=== PATIENT | female | born 1950 | race African-American/Black ===

== ENCOUNTER 2020-11-25 05:56 | Inpatient (IN) | payer OTHER ==
[2020-11-25] MEDS ORDERED: SODIUM CHLORIDE 0.9% 500 ML INFUS.BAG IV ONE (06:00)
[2020-11-25] MEDS ORDERED: ACETAMINOPHEN 1000 MG/100 ML VIAL (NON FORMULARY) IVPB ONE (06:00)
[2020-11-25] MEDS ORDERED: DEXAMETHASONE SOD PHOSPHATE 4 MG/1 ML VIAL IVPUSH ONE (06:02)
[2020-11-25] MEDS ORDERED: DEXAMETHASONE SOD PHOSPHATE 10 MG/1 ML VIAL ONE ×2 (06:13→10:19)
[2020-11-25] MEDS ORDERED: ACETAMINOPHEN INJECTION 100 ML IVPB ONE (06:14)
[2020-11-25 06:29] LABS: VENOUS BASE EXCESS 4.2 mmol/L (-2-2); VENOUS O2 SATURATION 69.5 % (70-80); VENOUS PCO2 41.4 mmHg (38-52); VENOUS PH 7.456 (7.310-7.410)
[2020-11-25 06:38] LABS: BASO % 2.7 % (0-2.0); EOS % 0.1 % (0-4.5); HEMATOCRIT 41.6 % (32.4-45.2); HEMOGLOBIN 14.2 GM/dL (10.7-15.3); LYMPH % 8.2 % (8-40); MCH 26.5 pg (25.7-33.7); MCHC 34.1 g/dl (32.0-36.0); MEAN CELL VOLUME 77.6 fl (80-96); MEAN PLT VOLUME 8.8 fl (7.5-11.1); MONO % 8.6 % (3.8-10.2); NEUT % 80.4 % (42.8-82.8); PLATELET COUNT 204 K/MM3 (134-434); RBC 5.36 M/mm3 (3.60-5.2); WHITE BLOOD COUNT 5.4 K/mm3 (4.0-10.0)
[2020-11-25 06:50] LABS: INR 1.03 (0.83-1.09); PROTHROMBIN TIME (PATIENT) 12.7 SEC (9.7-13.0)
[2020-11-25 06:53] LABS: ACTIVATED PTT 34.2 SECONDS (25.2-36.5); CALCIUM 8.5 mg/dL (8.5-10.1)
[2020-11-25 06:54] LABS: ALBUMIN 3.2 g/dl (3.4-5.0); BLOOD UREA NITROGEN 15.7 mg/dL (7-18)
[2020-11-25 06:56] LABS: BILIRUBIN,DIRECT 0.2 mg/dL (0.0-0.2)
[2020-11-25 06:57] LABS: CREATININE 0.8 mg/dL (0.55-1.3)
[2020-11-25 06:58] LABS: BILIRUBIN,TOTAL 0.6 mg/dL (0.2-1); TOT PROT 6.9 g/dl (6.4-8.2)
[2020-11-25 07:02] LABS: N-TERMINAL BNP 375.9 pg/ml (5-125)
[2020-11-25] MEDS ORDERED: ALBUTEROL SO4 HFA INHALER IH PRN (08:43)
[2020-11-25] MEDS: BUDESONIDE/FORMETEROL FUMARATE 160/4.5 mcg INHALER IH SCH (10:00)
[2020-11-25] MEDS ORDERED: DEXAMETHASONE 4 MG TABLET (FP) PO SCH (10:00)
[2020-11-25] MEDS ORDERED: ENOXAPARIN NA (PORCINE) 40 MG/0.4 ML DISP.SYRIN SQ SCH ×2 (10:00)
[2020-11-25] MEDS ORDERED: DEXAMETHASONE SOD PHOSPHATE 4 MG/1 ML VIAL IVPUSH SCH (10:00)
[2020-11-25] MEDS ORDERED: ENOXAPARIN NA (PORCINE) 40 MG/0.4 ML DISP.SYRIN SQ ONE (10:20)
[2020-11-25] MEDS: INSULIN SLIDING SCALE (NOVOLOG) 1 VIAL SQ SCH ×2 (11:21→17:44)
[2020-11-25] MEDS ORDERED: ENOXAPARIN NA (PORCINE) 80 MG/0.8 ML DISP.SYRIN SQ SCH ×2 (11:55→22:00)
[2020-11-25 15:01] LABS: EPI CELLS 8 /uL (0-25.1); HYALINE CASTS 0 /uL (0-3.1); URINE APPEARANCE CLEAR; URINE BACTERIA 376 /uL (0-1359); URINE BILIRUBIN NEGATIVE (NEGATIVE); URINE COLOR YELLOW; URINE GLUCOSE (UA) NEGATIVE (NEGATIVE); URINE KETONE NEGATIVE (NEGATIVE); URINE LEUK ESTERASE TRACE (NEGATIVE); URINE NITRITE NEGATIVE (NEGATIVE); URINE PROTEIN 1+ (NEGATIVE); URINE RBC 6 /uL (0-23.9); URINE UROBILINOGEN 0.2 mg/dL (0.2-1.0); URINE WBC 21 /uL (0-25.8)
[2020-11-25] MEDS ORDERED: LABETALOL HCL 100 MG TABLET (FP) PO SCH (22:00)
[2020-11-25] MEDS ORDERED: ATORVASTATIN CA 20 MG TABLET (FP) PO SCH (22:00)
[2020-11-25] MEDS ORDERED: FAMOTIDINE 20 MG/50 ML IVPB 20 MG/50 ML MG IVPB SCH (22:00)
[2020-11-25] MEDS ORDERED: ENOXAPARIN NA (PORCINE) 80 MG/0.8 ML DISP.SYRIN SQ ONE (23:32)
[2020-11-25] MEDS ORDERED: FAMOTIDINE 20 MG/50 ML IVPB 20 MG/50 ML MG IVPB ONE (23:32)
[2020-11-25] MEDS ORDERED: ATORVASTATIN CA 10 MG TABLET (FP) ONE (23:32)
[2020-11-25] MEDS ORDERED: LABETALOL HCL 100 MG TABLET (FP) ONE (23:32)
[2020-11-26] MEDS: INSULIN SLIDING SCALE (NOVOLOG) 1 VIAL SQ SCH ×5 (00:02→21:37)
[2020-11-26] MEDS: BUDESONIDE/FORMETEROL FUMARATE 160/4.5 mcg INHALER IH SCH ×3 (00:03→22:30)
[2020-11-26] MEDS ORDERED: ALBUTEROL SO4 HFA INHALER IH PRN (04:43)
[2020-11-26 05:58] LABS: ARTERIAL BLOOD GAS BASE EXCESS 1.9 mmol/L (-2-2); ARTERIAL BLOOD GAS PO2 45.5 mmHg (80-100); ARTERIAL BLOOD GAS pH 7.454 (7.350-7.450)
[2020-11-26 06:09] LABS: ALLENS TEST POSITIVE; ARTERIAL BLD GAS O2 SATURATION 83.7 mmHg (95-98)
[2020-11-26 06:10] LABS: VENT MODE S/T; VENT RATE 16
[2020-11-26 07:06] LABS: BASO % 0.8 % (0-2.0); HEMATOCRIT 41.5 % (32.4-45.2); HEMOGLOBIN 13.7 GM/dL (10.7-15.3); LYMPH % 10.5 % (8-40); MCH 26.1 pg (25.7-33.7); MCHC 33.1 g/dl (32.0-36.0); MEAN CELL VOLUME 78.9 fl (80-96); MEAN PLT VOLUME 8.8 fl (7.5-11.1); MONO % 18.1 % (3.8-10.2); NEUT % 70.6 % (42.8-82.8); PLATELET COUNT 275 K/MM3 (134-434); RBC 5.25 M/mm3 (3.60-5.2); RDW 14.1 % (11.6-15.6); WHITE BLOOD COUNT 4.8 K/mm3 (4.0-10.0)
[2020-11-26 07:17] LABS: ALBUMIN 2.9 g/dl (3.4-5.0); BLOOD UREA NITROGEN 18.8 mg/dL (7-18); CALCIUM 8.7 mg/dL (8.5-10.1); MAGNESIUM 2.7 mg/dL (1.8-2.4)
[2020-11-26 07:20] LABS: CREATININE 0.8 mg/dL (0.55-1.3)
[2020-11-26 07:21] LABS: PHOSPHOROUS 2.6 mg/dL (2.5-4.9)
[2020-11-26 07:22] LABS: BILIRUBIN,TOTAL 0.5 mg/dL (0.2-1); TOT PROT 6.6 g/dl (6.4-8.2)
[2020-11-26] MEDS ORDERED: CHLORTHALIDONE 25 MG TABLET PO SCH (10:00)
[2020-11-26] MEDS ORDERED: amLODIPine BESYLATE 10 MG TABLET (FP) PO SCH (10:00)
[2020-11-26] MEDS ORDERED: LOSARTAN POTASSIUM 50 MG TABLET PO SCH (10:00)
[2020-11-26] MEDS ORDERED: PT OWN MED DRAWER 7, Y5N ONE ×2 (10:05→10:28)
[2020-11-26] MEDS: FAMOTIDINE 20 MG/50 ML IVPB 20 MG/50 ML MG IVPB SCH ×2 (10:10→21:25)
[2020-11-26] MEDS: ENOXAPARIN NA (PORCINE) 80 MG/0.8 ML DISP.SYRIN SQ SCH ×2 (10:11→21:23)
[2020-11-26] MEDS: DEXAMETHASONE 4 MG TABLET (FP) PO SCH (10:11)
[2020-11-26] MEDS: LABETALOL HCL 100 MG TABLET (FP) PO SCH ×2 (10:12→21:25)
[2020-11-26] MEDS: LOSARTAN POTASSIUM 50 MG TABLET PO SCH (10:12)
[2020-11-26] MEDS: amLODIPine BESYLATE 10 MG TABLET (FP) PO SCH (10:12)
[2020-11-26] MEDS ORDERED: REMDESIVIR 200 MG in SODIUM CHLORIDE 210 ML IVPB ONE (11:00)
[2020-11-26] MEDS: CHLORTHALIDONE 25 MG TABLET PO SCH (11:30)
[2020-11-26] MEDS: MUPIROCIN 2% TOPICAL OINTMENT FOR DECOLONIZATION NS SCH ×2 (11:31→21:25)
[2020-11-26] MEDS: CEFTRIAXONE 1 GM in DEXTROSE 5%-WATER - 50 ML IVPB SCH (12:00)
[2020-11-26] MEDS ORDERED: cefTRIAXone SODIUM 1 GM VIAL ONE (12:05)
[2020-11-26] MEDS ORDERED: DEXTROSE 5%-WATER - 50 ML IVPB ONE (12:05)
[2020-11-26] MEDS: ALBUTEROL SO4 HFA INHALER IH SCH ×3 (12:49→20:30)
[2020-11-26] MEDS: AZITHROMYCIN IVPB 250 MG in DEXTROSE 5%-WATER - 250 ML IVPB SCH (13:00)
[2020-11-26] MEDS ORDERED: INSULIN (LEVEMIR) 100 UNITS/ML UNITS SQ ONE (18:14)
[2020-11-26] MEDS: ATORVASTATIN CA 20 MG TABLET (FP) PO SCH (21:25)
[2020-11-26] MEDS: CHLORHEXIDINE GLUCONATE 4% CLEANSER FOR DECOLONIZATION TP SCH (21:25)
[2020-11-27 05:37] LABS: ARTERIAL BLOOD GAS BASE EXCESS 2.8 mmol/L (-2-2); ARTERIAL BLOOD GAS PO2 93.8 mmHg (80-100); ARTERIAL BLOOD GAS pH 7.414 (7.350-7.450)
[2020-11-27 05:38] LABS: ALLENS TEST POSITIVE
[2020-11-27 05:39] LABS: VENT MODE S/T; VENT RATE 16
[2020-11-27] MEDS: INSULIN SLIDING SCALE (NOVOLOG) 1 VIAL SQ SCH ×4 (06:12→21:31)
[2020-11-27 06:52] LABS: BASO % 0.2 % (0-2.0); HEMATOCRIT 42.8 % (32.4-45.2); LYMPH % 7.8 % (8-40); MCHC 32.6 g/dl (32.0-36.0); MEAN CELL VOLUME 79.6 fl (80-96); MEAN PLT VOLUME 8.7 fl (7.5-11.1); MONO % 10.8 % (3.8-10.2); NEUT % 81.2 % (42.8-82.8); PLATELET COUNT 341 K/MM3 (134-434); RBC 5.37 M/mm3 (3.60-5.2)
[2020-11-27 07:15] LABS: ALBUMIN 2.8 g/dl (3.4-5.0); CALCIUM 9.2 mg/dL (8.5-10.1)
[2020-11-27 07:17] LABS: BLOOD UREA NITROGEN 19.5 mg/dL (7-18)
[2020-11-27 07:19] LABS: CREATININE 0.7 mg/dL (0.55-1.3); PHOSPHOROUS 3.6 mg/dL (2.5-4.9)
[2020-11-27 07:20] LABS: BILIRUBIN,TOTAL 0.4 mg/dL (0.2-1); TOT PROT 6.4 g/dl (6.4-8.2)
[2020-11-27] MEDS ORDERED: cefTRIAXone SODIUM 1 GM VIAL ONE (09:29)
[2020-11-27] MEDS ORDERED: PT OWN MED DRAWER 7, Y5N ONE ×2 (09:29→11:30)
[2020-11-27] MEDS ORDERED: DEXTROSE 5%-WATER - 50 ML IVPB ONE (09:29)
[2020-11-27] MEDS: MUPIROCIN 2% TOPICAL OINTMENT FOR DECOLONIZATION NS SCH ×2 (09:38→21:25)
[2020-11-27] MEDS: POLYETHYLENE GLYCOL 3350 119 GM BTL PO SCH (09:38)
[2020-11-27] MEDS: LOSARTAN POTASSIUM 50 MG TABLET PO SCH (09:38)
[2020-11-27] MEDS: DEXAMETHASONE 4 MG TABLET (FP) PO SCH (09:39)
[2020-11-27] MEDS: CHLORTHALIDONE 25 MG TABLET PO SCH (09:41)
[2020-11-27] MEDS: ENOXAPARIN NA (PORCINE) 80 MG/0.8 ML DISP.SYRIN SQ SCH ×2 (09:42→21:23)
[2020-11-27] MEDS: LABETALOL HCL 100 MG TABLET (FP) PO SCH ×2 (09:42→21:24)
[2020-11-27] MEDS: FAMOTIDINE 20 MG/50 ML IVPB 20 MG/50 ML MG IVPB SCH ×2 (09:43→21:31)
[2020-11-27] MEDS: amLODIPine BESYLATE 10 MG TABLET (FP) PO SCH (09:43)
[2020-11-27] MEDS: CEFTRIAXONE 1 GM in DEXTROSE 5%-WATER - 50 ML IVPB SCH (09:44)
[2020-11-27] MEDS ORDERED: TOCILIZUMAB (ACTEMRA) 200 MG/10 ML VIAL IVPB ONE (09:45)
[2020-11-27] MEDS: AZITHROMYCIN IVPB 250 MG in DEXTROSE 5%-WATER - 250 ML IVPB SCH (09:45)
[2020-11-27] MEDS: ALBUTEROL SO4 HFA INHALER IH SCH ×4 (09:46→21:25)
[2020-11-27] MEDS: BUDESONIDE/FORMETEROL FUMARATE 160/4.5 mcg INHALER IH SCH ×2 (09:46→21:25)
[2020-11-27] MEDS ORDERED: POLYETHYLENE GLYCOL 3350 119 GM BTL PO SCH (10:00)
[2020-11-27] MEDS ORDERED: SODIUM CHLORIDE IVPB ONE (11:00)
[2020-11-27] MEDS ORDERED: TOCILIZUMAB IVPB ONE (11:00)
[2020-11-27] MEDS: SODIUM CHLORIDE 0.45% 1,000 ML IV SCH (11:23)
[2020-11-27] MEDS: REMDESIVIR 100 MG in SODIUM CHLORIDE 230 ML IVPB SCH (11:31)
[2020-11-27] MEDS ORDERED: ALPRAZolam 0.25 MG TABLET PO ONE (12:34)
[2020-11-27] MEDS: ATORVASTATIN CA 20 MG TABLET (FP) PO SCH (21:23)
[2020-11-27] MEDS: CHLORHEXIDINE GLUCONATE 4% CLEANSER FOR DECOLONIZATION TP SCH (21:23)
[2020-11-28] MEDS: SODIUM CHLORIDE 0.45% 1,000 ML IV SCH ×3 (04:00→22:40)
[2020-11-28] MEDS: INSULIN SLIDING SCALE (NOVOLOG) 1 VIAL SQ SCH ×4 (06:18→21:10)
[2020-11-28 07:18] LABS: BASO % 0.3 % (0-2.0); HEMATOCRIT 43.1 % (32.4-45.2); HEMOGLOBIN 14.6 GM/dL (10.7-15.3); MCH 26.7 pg (25.7-33.7); MCHC 33.8 g/dl (32.0-36.0); MEAN CELL VOLUME 78.9 fl (80-96); MEAN PLT VOLUME 8.5 fl (7.5-11.1); MONO % 7.4 % (3.8-10.2); NEUT % 85.3 % (42.8-82.8); PLATELET COUNT 362 K/MM3 (134-434); RBC 5.46 M/mm3 (3.60-5.2); RDW 14.2 % (11.6-15.6); WHITE BLOOD COUNT 8.4 K/mm3 (4.0-10.0)
[2020-11-28 07:56] LABS: ALBUMIN 2.8 g/dl (3.4-5.0); BLOOD UREA NITROGEN 16.4 mg/dL (7-18); CREATININE 0.7 mg/dL (0.55-1.3); PHOSPHOROUS 3.8 mg/dL (2.5-4.9)
[2020-11-28 07:58] LABS: BILIRUBIN,TOTAL 0.5 mg/dL (0.2-1); MAGNESIUM 2.3 mg/dL (1.8-2.4); TOT PROT 6.3 g/dl (6.4-8.2)
[2020-11-28] MEDS: ALBUTEROL SO4 HFA INHALER IH SCH ×4 (08:30→20:52)
[2020-11-28] MEDS ORDERED: PT OWN MED DRAWER 7, Y5N ONE (09:06)
[2020-11-28] MEDS ORDERED: DEXTROSE 5%-WATER - 50 ML IVPB ONE (09:07)
[2020-11-28] MEDS ORDERED: cefTRIAXone SODIUM 1 GM VIAL ONE (09:07)
[2020-11-28] MEDS: MUPIROCIN 2% TOPICAL OINTMENT FOR DECOLONIZATION NS SCH ×2 (09:12→21:02)
[2020-11-28] MEDS: AZITHROMYCIN IVPB 250 MG in DEXTROSE 5%-WATER - 250 ML IVPB SCH (09:13)
[2020-11-28] MEDS: CEFTRIAXONE 1 GM in DEXTROSE 5%-WATER - 50 ML IVPB SCH (09:14)
[2020-11-28] MEDS: amLODIPine BESYLATE 10 MG TABLET (FP) PO SCH (09:16)
[2020-11-28] MEDS: FAMOTIDINE 20 MG/50 ML IVPB 20 MG/50 ML MG IVPB SCH ×2 (09:16→21:01)
[2020-11-28] MEDS: LABETALOL HCL 100 MG TABLET (FP) PO SCH ×2 (09:16→21:01)
[2020-11-28] MEDS: ENOXAPARIN NA (PORCINE) 80 MG/0.8 ML DISP.SYRIN SQ SCH ×2 (09:17→21:02)
[2020-11-28] MEDS: LOSARTAN POTASSIUM 50 MG TABLET PO SCH (09:17)
[2020-11-28] MEDS: CHLORTHALIDONE 25 MG TABLET PO SCH (09:17)
[2020-11-28] MEDS: DEXAMETHASONE 4 MG TABLET (FP) PO SCH (09:17)
[2020-11-28] MEDS: BUDESONIDE/FORMETEROL FUMARATE 160/4.5 mcg INHALER IH SCH ×2 (09:17→21:03)
[2020-11-28] MEDS: POLYETHYLENE GLYCOL 3350 119 GM BTL PO SCH (10:27)
[2020-11-28] MEDS ORDERED: DEXAMETHASONE SOD PHOSPHATE 4 MG/1 ML VIAL IVPUSH ONE (11:32)
[2020-11-28] MEDS: REMDESIVIR 100 MG in SODIUM CHLORIDE 230 ML IVPB SCH (12:00)
[2020-11-28] MEDS: DEXAMETHASONE SOD PHOSPHATE 4 MG/1 ML VIAL IVPUSH SCH (12:15)
[2020-11-28] MEDS: CHLORHEXIDINE GLUCONATE 4% CLEANSER FOR DECOLONIZATION TP SCH (21:02)
[2020-11-28] MEDS: ATORVASTATIN CA 20 MG TABLET (FP) PO SCH (21:02)
[2020-11-29] MEDS: INSULIN SLIDING SCALE (NOVOLOG) 1 VIAL SQ SCH ×4 (06:34→22:08)
[2020-11-29 07:05] LABS: BASO % 0.4 % (0-2.0); EOS % 0.1 % (0-4.5); HEMATOCRIT 44.1 % (32.4-45.2); LYMPH % 6.5 % (8-40); MCH 26.6 pg (25.7-33.7); MEAN CELL VOLUME 78.2 fl (80-96); MEAN PLT VOLUME 8.2 fl (7.5-11.1); MONO % 7.8 % (3.8-10.2); NEUT % 85.2 % (42.8-82.8); PLATELET COUNT 428 K/MM3 (134-434); RBC 5.64 M/mm3 (3.60-5.2); RDW 14.3 % (11.6-15.6); WHITE BLOOD COUNT 10.5 K/mm3 (4.0-10.0)
[2020-11-29 07:31] LABS: ALBUMIN 2.8 g/dl (3.4-5.0); BLOOD UREA NITROGEN 17.3 mg/dL (7-18); CALCIUM 9.1 mg/dL (8.5-10.1)
[2020-11-29 07:32] LABS: MAGNESIUM 2.2 mg/dL (1.8-2.4)
[2020-11-29 07:34] LABS: BILIRUBIN,TOTAL 0.9 mg/dL (0.2-1); CREATININE 0.7 mg/dL (0.55-1.3); PHOSPHOROUS 3.6 mg/dL (2.5-4.9)
[2020-11-29 07:35] LABS: TOT PROT 6.3 g/dl (6.4-8.2)
[2020-11-29] MEDS: ALBUTEROL SO4 HFA INHALER IH SCH ×4 (08:00→20:15)
[2020-11-29 09:51] LABS: ANISOCYTOSIS 0; MACROCYTOSIS 0; PLATELET ESTIMATE NORMAL
[2020-11-29] MEDS ORDERED: DEXTROSE 5%-WATER - 50 ML IVPB ONE (11:12)
[2020-11-29] MEDS ORDERED: cefTRIAXone SODIUM 1 GM VIAL ONE (11:12)
[2020-11-29] MEDS: CEFTRIAXONE 1 GM in DEXTROSE 5%-WATER - 50 ML IVPB SCH (11:39)
[2020-11-29] MEDS: FAMOTIDINE 20 MG/50 ML IVPB 20 MG/50 ML MG IVPB SCH ×2 (11:39→22:08)
[2020-11-29] MEDS: ENOXAPARIN NA (PORCINE) 80 MG/0.8 ML DISP.SYRIN SQ SCH ×2 (11:40→22:08)
[2020-11-29] MEDS: DEXAMETHASONE SOD PHOSPHATE 4 MG/1 ML VIAL IVPUSH SCH (11:41)
[2020-11-29] MEDS: LABETALOL HCL 100 MG TABLET (FP) PO SCH ×2 (11:41→22:08)
[2020-11-29] MEDS: POLYETHYLENE GLYCOL 3350 119 GM BTL PO SCH (11:41)
[2020-11-29] MEDS: MUPIROCIN 2% TOPICAL OINTMENT FOR DECOLONIZATION NS SCH ×2 (11:42→22:08)
[2020-11-29] MEDS: CHLORTHALIDONE 25 MG TABLET PO SCH (11:43)
[2020-11-29] MEDS: LOSARTAN POTASSIUM 50 MG TABLET PO SCH (11:43)
[2020-11-29] MEDS: BUDESONIDE/FORMETEROL FUMARATE 160/4.5 mcg INHALER IH SCH ×2 (11:44→22:09)
[2020-11-29] MEDS: amLODIPine BESYLATE 10 MG TABLET (FP) PO SCH (11:44)
[2020-11-29] MEDS: SODIUM CHLORIDE 0.45% 1,000 ML IV SCH (11:45)
[2020-11-29] MEDS ORDERED: PT OWN MED DRAWER 7, Y5N ONE (11:50)
[2020-11-29] MEDS: AZITHROMYCIN IVPB 250 MG in DEXTROSE 5%-WATER - 250 ML IVPB SCH (11:54)
[2020-11-29] MEDS: REMDESIVIR 100 MG in SODIUM CHLORIDE 230 ML IVPB SCH (11:55)
[2020-11-29] MEDS: CHLORHEXIDINE GLUCONATE 4% CLEANSER FOR DECOLONIZATION TP SCH (22:08)
[2020-11-29] MEDS: ATORVASTATIN CA 20 MG TABLET (FP) PO SCH (22:08)
[2020-11-30 06:30] LABS: HEMATOCRIT 44.9 % (32.4-45.2); HEMOGLOBIN 14.9 GM/dL (10.7-15.3); MCH 26.5 pg (25.7-33.7); MCHC 33.3 g/dl (32.0-36.0); MEAN CELL VOLUME 79.7 fl (80-96); MEAN PLT VOLUME 8.4 fl (7.5-11.1); PLATELET COUNT 450 K/MM3 (134-434); RBC 5.63 M/mm3 (3.60-5.2); RDW 13.9 % (11.6-15.6); WHITE BLOOD COUNT 10.2 K/mm3 (4.0-10.0)
[2020-11-30 06:35] LABS: CALCIUM 9.5 mg/dL (8.5-10.1)
[2020-11-30 06:36] LABS: BLOOD UREA NITROGEN 20.5 mg/dL (7-18); MAGNESIUM 2.2 mg/dL (1.8-2.4)
[2020-11-30] MEDS: INSULIN SLIDING SCALE (NOVOLOG) 1 VIAL SQ SCH ×4 (06:37→22:35)
[2020-11-30 06:39] LABS: CREATININE 0.8 mg/dL (0.55-1.3)
[2020-11-30 06:40] LABS: PHOSPHOROUS 3.7 mg/dL (2.5-4.9)
[2020-11-30] MEDS: ALBUTEROL SO4 HFA INHALER IH SCH ×4 (09:00→21:39)
[2020-11-30] MEDS ORDERED: PT OWN MED DRAWER 7, Y5N ONE ×2 (09:09→10:49)
[2020-11-30] MEDS: DEXAMETHASONE SOD PHOSPHATE 4 MG/1 ML VIAL IVPUSH SCH (10:19)
[2020-11-30] MEDS: MUPIROCIN 2% TOPICAL OINTMENT FOR DECOLONIZATION NS SCH ×2 (10:19→21:37)
[2020-11-30] MEDS: ENOXAPARIN NA (PORCINE) 80 MG/0.8 ML DISP.SYRIN SQ SCH ×2 (10:19→21:25)
[2020-11-30] MEDS: amLODIPine BESYLATE 10 MG TABLET (FP) PO SCH (10:23)
[2020-11-30] MEDS: LOSARTAN POTASSIUM 50 MG TABLET PO SCH (10:23)
[2020-11-30] MEDS: CHLORTHALIDONE 25 MG TABLET PO SCH ×2 (10:23→12:02)
[2020-11-30] MEDS: FAMOTIDINE 20 MG/50 ML IVPB 20 MG/50 ML MG IVPB SCH ×2 (10:23→21:24)
[2020-11-30] MEDS: LABETALOL HCL 100 MG TABLET (FP) PO SCH ×2 (10:23→21:24)
[2020-11-30] MEDS: BUDESONIDE/FORMETEROL FUMARATE 160/4.5 mcg INHALER IH SCH ×2 (10:24→21:39)
[2020-11-30] MEDS: POLYETHYLENE GLYCOL 3350 119 GM BTL PO SCH (10:24)
[2020-11-30] MEDS: SODIUM CHLORIDE 0.45% 1,000 ML IV SCH ×2 (10:45→21:00)
[2020-11-30] MEDS: REMDESIVIR 100 MG in SODIUM CHLORIDE 230 ML IVPB SCH (10:50)
[2020-11-30] MEDS ORDERED: INSULIN REGULAR HUMAN 100 UNITS/ML *VIAL IVPUSH ONE (21:24)
[2020-11-30] MEDS: ATORVASTATIN CA 20 MG TABLET (FP) PO SCH (21:24)
[2020-11-30] MEDS: CHLORHEXIDINE GLUCONATE 4% CLEANSER FOR DECOLONIZATION TP SCH (21:25)
[2020-12-01] MEDS: INSULIN SLIDING SCALE (NOVOLOG) 1 VIAL SQ SCH ×3 (06:16→22:08)
[2020-12-01 06:41] LABS: BASO % 0.3 % (0-2.0); EOS % 0.8 % (0-4.5); HEMATOCRIT 46.4 % (32.4-45.2); HEMOGLOBIN 15.6 GM/dL (10.7-15.3); LYMPH % 5.9 % (8-40); MCH 26.6 pg (25.7-33.7); MCHC 33.7 g/dl (32.0-36.0); MEAN PLT VOLUME 8.1 fl (7.5-11.1); MONO % 4.8 % (3.8-10.2); NEUT % 88.2 % (42.8-82.8); PLATELET COUNT 434 K/MM3 (134-434); RBC 5.87 M/mm3 (3.60-5.2); RDW 14.2 % (11.6-15.6); WHITE BLOOD COUNT 9.8 K/mm3 (4.0-10.0)
[2020-12-01 06:47] LABS: CALCIUM 9.5 mg/dL (8.5-10.1)
[2020-12-01 06:48] LABS: BLOOD UREA NITROGEN 20.5 mg/dL (7-18)
[2020-12-01 06:50] LABS: CREATININE 0.9 mg/dL (0.55-1.3)
[2020-12-01 06:51] LABS: PHOSPHOROUS 3.8 mg/dL (2.5-4.9)
[2020-12-01 06:52] LABS: BILIRUBIN,TOTAL 0.6 mg/dL (0.2-1); TOT PROT 6.4 g/dl (6.4-8.2)
[2020-12-01] MEDS: DEXAMETHASONE SOD PHOSPHATE 4 MG/1 ML VIAL IVPUSH SCH (09:50)
[2020-12-01] MEDS: LABETALOL HCL 100 MG TABLET (FP) PO SCH ×2 (09:50→21:21)
[2020-12-01] MEDS: FAMOTIDINE 20 MG/50 ML IVPB 20 MG/50 ML MG IVPB SCH ×2 (09:50→21:22)
[2020-12-01] MEDS: LOSARTAN POTASSIUM 50 MG TABLET PO SCH (09:50)
[2020-12-01] MEDS: POLYETHYLENE GLYCOL 3350 119 GM BTL PO SCH (09:51)
[2020-12-01] MEDS: amLODIPine BESYLATE 10 MG TABLET (FP) PO SCH (09:51)
[2020-12-01] MEDS: ENOXAPARIN NA (PORCINE) 80 MG/0.8 ML DISP.SYRIN SQ SCH ×2 (09:57→21:21)
[2020-12-01] MEDS ORDERED: PT OWN MED DRAWER 7, Y5N ONE ×2 (10:02→16:42)
[2020-12-01] MEDS: CHLORTHALIDONE 25 MG TABLET PO SCH (10:16)
[2020-12-01] MEDS: SODIUM CHLORIDE 0.45% 1,000 ML IV SCH (10:16)
[2020-12-01] MEDS: BUDESONIDE/FORMETEROL FUMARATE 160/4.5 mcg INHALER IH SCH ×2 (10:16→22:09)
[2020-12-01] MEDS: ALBUTEROL SO4 HFA INHALER IH SCH ×3 (12:22→22:09)
[2020-12-01] MEDS ORDERED: BISACODYL 5 MG TABLET.DR (FP) PO PRN (12:49)
[2020-12-01 14:07] LABS: HEP B CORE AB, TOT Negative (Negative)
[2020-12-01 14:45] VITALS: BMI 31.2
[2020-12-01] MEDS ORDERED: INSULIN (NOVOLOG) ASPART 100 UNITS/ML 10ML VIAL SQ ONE (17:30)
[2020-12-01] MEDS: ATORVASTATIN CA 20 MG TABLET (FP) PO SCH (21:21)
[2020-12-01] MEDS: CHLORHEXIDINE GLUCONATE 4% CLEANSER FOR DECOLONIZATION TP SCH (21:21)
[2020-12-02] MEDS: INSULIN SLIDING SCALE (NOVOLOG) 1 VIAL SQ SCH ×4 (06:37→22:43)
[2020-12-02 06:42] LABS: HEMOGLOBIN 15.2 GM/dL (10.7-15.3); MCH 26.2 pg (25.7-33.7); MCHC 33.1 g/dl (32.0-36.0); MEAN CELL VOLUME 79.1 fl (80-96); MEAN PLT VOLUME 8.2 fl (7.5-11.1); PLATELET COUNT 380 K/MM3 (134-434); RBC 5.81 M/mm3 (3.60-5.2); RDW 14.4 % (11.6-15.6); WHITE BLOOD COUNT 11.5 K/mm3 (4.0-10.0)
[2020-12-02 07:05] LABS: CALCIUM 9.4 mg/dL (8.5-10.1)
[2020-12-02 07:06] LABS: ALBUMIN 2.8 g/dl (3.4-5.0); BLOOD UREA NITROGEN 21.5 mg/dL (7-18)
[2020-12-02 07:09] LABS: CREATININE 0.7 mg/dL (0.55-1.3)
[2020-12-02 07:11] LABS: BILIRUBIN,TOTAL 0.7 mg/dL (0.2-1)
[2020-12-02] MEDS ORDERED: PT OWN MED DRAWER 7, Y5N ONE (08:57)
[2020-12-02] MEDS: DEXAMETHASONE SOD PHOSPHATE 4 MG/1 ML VIAL IVPUSH SCH (09:19)
[2020-12-02] MEDS: ENOXAPARIN NA (PORCINE) 80 MG/0.8 ML DISP.SYRIN SQ SCH (09:20)
[2020-12-02] MEDS: LOSARTAN POTASSIUM 50 MG TABLET PO SCH (09:20)
[2020-12-02] MEDS: ALBUTEROL SO4 HFA INHALER IH SCH ×4 (09:20→22:42)
[2020-12-02] MEDS: CHLORTHALIDONE 25 MG TABLET PO SCH (09:20)
[2020-12-02] MEDS: FAMOTIDINE 20 MG/50 ML IVPB 20 MG/50 ML MG IVPB SCH ×2 (09:21→22:43)
[2020-12-02] MEDS: POLYETHYLENE GLYCOL 3350 119 GM BTL PO SCH (09:21)
[2020-12-02] MEDS: LABETALOL HCL 100 MG TABLET (FP) PO SCH ×2 (09:21→22:48)
[2020-12-02] MEDS: BUDESONIDE/FORMETEROL FUMARATE 160/4.5 mcg INHALER IH SCH ×2 (09:21→22:43)
[2020-12-02] MEDS: amLODIPine BESYLATE 10 MG TABLET (FP) PO SCH (09:21)
[2020-12-02] MEDS ORDERED: INSULIN REGULAR HUMAN 100 UNITS/ML *VIAL IVPUSH ONE (17:00)
[2020-12-02 21:52] LABS: CHLORIDE 100 mmol/L (98-107); SODIUM 135 mmol/L (136-145)
[2020-12-02 21:54] LABS: ANION GAP 7 MMOL/L (8-16); BLOOD UREA NITROGEN 27.8 mg/dL (7-18); CALCIUM 9.5 mg/dL (8.5-10.1); CO2 27 mmol/L (21-32)
[2020-12-02 21:57] LABS: CREATININE 1.1 mg/dL (0.55-1.3)
[2020-12-02 21:59] LABS: GLUCOSE,RANDOM 493 mg/dL (74-106)
[2020-12-02] MEDS ORDERED: INSULIN (LEVEMIR) 100 UNITS/ML UNITS SQ SCH (22:00)
[2020-12-02] MEDS: ATORVASTATIN CA 20 MG TABLET (FP) PO SCH (22:42)
[2020-12-02] MEDS: CHLORHEXIDINE GLUCONATE 4% CLEANSER FOR DECOLONIZATION TP SCH (22:42)
[2020-12-03] MEDS: INSULIN SLIDING SCALE (NOVOLOG) 1 VIAL SQ SCH ×4 (06:33→22:18)
[2020-12-03 06:56] LABS: HEMATOCRIT 45.1 % (32.4-45.2); HEMOGLOBIN 14.9 GM/dL (10.7-15.3); MCH 26.1 pg (25.7-33.7); MEAN PLT VOLUME 8.2 fl (7.5-11.1); PLATELET COUNT 383 K/MM3 (134-434); RBC 5.71 M/mm3 (3.60-5.2); RDW 14.1 % (11.6-15.6); WHITE BLOOD COUNT 12.1 K/mm3 (4.0-10.0)
[2020-12-03] MEDS ORDERED: INSULIN (LEVEMIR) 100 UNITS/ML UNITS SQ SCH ×3 (07:00→22:00)
[2020-12-03 07:18] LABS: CALCIUM 9.8 mg/dL (8.5-10.1)
[2020-12-03 07:19] LABS: ALBUMIN 2.9 g/dl (3.4-5.0); BLOOD UREA NITROGEN 22.7 mg/dL (7-18)
[2020-12-03 07:22] LABS: CREATININE 0.8 mg/dL (0.55-1.3)
[2020-12-03 07:23] LABS: BILIRUBIN,TOTAL 0.6 mg/dL (0.2-1)
[2020-12-03 07:24] LABS: TOT PROT 5.8 g/dl (6.4-8.2)
[2020-12-03] MEDS: ALBUTEROL SO4 HFA INHALER IH SCH ×4 (09:00→20:05)
[2020-12-03] MEDS ORDERED: PT OWN MED DRAWER 7, Y5N ONE (09:49)
[2020-12-03] MEDS ORDERED: ENOXAPARIN NA (PORCINE) 80 MG/0.8 ML DISP.SYRIN SQ SCH (10:00)
[2020-12-03] MEDS: ENOXAPARIN NA (PORCINE) 80 MG/0.8 ML DISP.SYRIN SQ SCH (10:02)
[2020-12-03] MEDS: amLODIPine BESYLATE 10 MG TABLET (FP) PO SCH (10:05)
[2020-12-03] MEDS: DEXAMETHASONE SOD PHOSPHATE 4 MG/1 ML VIAL IVPUSH SCH (10:06)
[2020-12-03] MEDS: LABETALOL HCL 100 MG TABLET (FP) PO SCH ×2 (10:06→22:12)
[2020-12-03] MEDS: CHLORTHALIDONE 25 MG TABLET PO SCH (10:06)
[2020-12-03] MEDS: POLYETHYLENE GLYCOL 3350 119 GM BTL PO SCH (10:07)
[2020-12-03] MEDS: FAMOTIDINE 20 MG/50 ML IVPB 20 MG/50 ML MG IVPB SCH ×2 (10:07→22:13)
[2020-12-03] MEDS: LOSARTAN POTASSIUM 50 MG TABLET PO SCH (10:10)
[2020-12-03] MEDS: BUDESONIDE/FORMETEROL FUMARATE 160/4.5 mcg INHALER IH SCH ×2 (10:11→22:18)
[2020-12-03] MEDS: INSULIN (LEVEMIR) 100 UNITS/ML UNITS SQ SCH (22:12)
[2020-12-03] MEDS: ATORVASTATIN CA 20 MG TABLET (FP) PO SCH (22:12)
[2020-12-03] MEDS: CHLORHEXIDINE GLUCONATE 4% CLEANSER FOR DECOLONIZATION TP SCH (22:13)
[2020-12-03] MEDS ORDERED: ACETAMINOPHEN 325 MG TABLET (FP) PO PRN (23:19)
[2020-12-03] MEDS ORDERED: MAG HYDROX/AL HYDROX/SIMETH -MYLANTA- ORAL SUSPENSION PO ONE (23:20)
[2020-12-04] MEDS ORDERED: PT OWN MED DRAWER 7, Y5N ONE ×2 (01:14→09:03)
[2020-12-04] MEDS ORDERED: MAG HYDROX/AL HYDROX/SIMETH 30 ML UNIT-DOSE CUP PO ONE (01:30)
[2020-12-04] MEDS: INSULIN (LEVEMIR) 100 UNITS/ML UNITS SQ SCH ×2 (06:46→21:32)
[2020-12-04] MEDS: INSULIN SLIDING SCALE (NOVOLOG) 1 VIAL SQ SCH ×4 (06:46→22:04)
[2020-12-04 06:57] LABS: BASO % 0.4 % (0-2.0); EOS % 1.6 % (0-4.5); HEMATOCRIT 44.3 % (32.4-45.2); HEMOGLOBIN 14.7 GM/dL (10.7-15.3); LYMPH % 6.3 % (8-40); MCHC 33.1 g/dl (32.0-36.0); MEAN CELL VOLUME 78.8 fl (80-96); MEAN PLT VOLUME 8.6 fl (7.5-11.1); MONO % 4.8 % (3.8-10.2); NEUT % 86.9 % (42.8-82.8); PLATELET COUNT 327 K/MM3 (134-434); RBC 5.63 M/mm3 (3.60-5.2); RDW 14.3 % (11.6-15.6); WHITE BLOOD COUNT 11.4 K/mm3 (4.0-10.0)
[2020-12-04 07:24] LABS: BLOOD UREA NITROGEN 21.3 mg/dL (7-18); CALCIUM 9.4 mg/dL (8.5-10.1); MAGNESIUM 2.1 mg/dL (1.8-2.4)
[2020-12-04 07:28] LABS: BILIRUBIN,TOTAL 0.9 mg/dL (0.2-1); TOT PROT 5.9 g/dl (6.4-8.2)
[2020-12-04 07:30] LABS: CREATININE 0.7 mg/dL (0.55-1.3)
[2020-12-04 08:09] LABS: SARS-CoV-2 NAA Not Detected (Not Detected)
[2020-12-04] MEDS: ALBUTEROL SO4 HFA INHALER IH SCH ×4 (09:00→20:22)
[2020-12-04] MEDS: DEXAMETHASONE SOD PHOSPHATE 4 MG/1 ML VIAL IVPUSH SCH (09:46)
[2020-12-04] MEDS: LOSARTAN POTASSIUM 50 MG TABLET PO SCH (09:46)
[2020-12-04] MEDS: POLYETHYLENE GLYCOL 3350 119 GM BTL PO SCH (09:47)
[2020-12-04] MEDS: CHLORTHALIDONE 25 MG TABLET PO SCH (09:47)
[2020-12-04] MEDS: ENOXAPARIN NA (PORCINE) 80 MG/0.8 ML DISP.SYRIN SQ SCH (09:47)
[2020-12-04] MEDS: LABETALOL HCL 100 MG TABLET (FP) PO SCH ×2 (09:48→21:31)
[2020-12-04] MEDS: amLODIPine BESYLATE 10 MG TABLET (FP) PO SCH (09:51)
[2020-12-04] MEDS: FAMOTIDINE 20 MG TABLET PO SCH (09:51)
[2020-12-04] MEDS: BUDESONIDE/FORMETEROL FUMARATE 160/4.5 mcg INHALER IH SCH ×2 (09:51→21:32)
[2020-12-04] MEDS: CHLORHEXIDINE GLUCONATE 4% CLEANSER FOR DECOLONIZATION TP SCH (21:31)
[2020-12-04] MEDS: ATORVASTATIN CA 20 MG TABLET (FP) PO SCH (21:31)
[2020-12-05] MEDS ORDERED: BISACODYL 5 MG TABLET.DR (FP) PO PRN (03:03)
[2020-12-05 05:11] LABS: SARS-CoV-2 NAA Not Detected (Not Detected)
[2020-12-05] MEDS: INSULIN (LEVEMIR) 100 UNITS/ML UNITS SQ SCH ×2 (06:34→22:06)
[2020-12-05] MEDS: INSULIN SLIDING SCALE (NOVOLOG) 1 VIAL SQ SCH ×5 (06:34→22:07)
[2020-12-05] MEDS ORDERED: INSULIN SLIDING SCALE (NOVOLOG) 1 VIAL SQ ONE (06:56)
[2020-12-05 07:19] LABS: BASO % 0.1 % (0-2.0); EOS % 1.4 % (0-4.5); HEMATOCRIT 44.7 % (32.4-45.2); HEMOGLOBIN 14.9 GM/dL (10.7-15.3); LYMPH % 6.9 % (8-40); MCH 26.2 pg (25.7-33.7); MCHC 33.4 g/dl (32.0-36.0); MEAN CELL VOLUME 78.6 fl (80-96); MEAN PLT VOLUME 8.8 fl (7.5-11.1); MONO % 4.5 % (3.8-10.2); NEUT % 87.1 % (42.8-82.8); PLATELET COUNT 309 K/MM3 (134-434); RBC 5.68 M/mm3 (3.60-5.2); RDW 14.4 % (11.6-15.6); WHITE BLOOD COUNT 13.2 K/mm3 (4.0-10.0)
[2020-12-05 07:20] LABS: CHLORIDE 103 mmol/L (98-107); SODIUM 139 mmol/L (136-145)
[2020-12-05 07:22] LABS: ALBUMIN 2.9 g/dl (3.4-5.0); ANION GAP 5 MMOL/L (8-16); CALCIUM 9.3 mg/dL (8.5-10.1); CO2 31 mmol/L (21-32)
[2020-12-05 07:23] LABS: GLUCOSE,RANDOM 134 mg/dL (74-106); MAGNESIUM 1.9 mg/dL (1.8-2.4)
[2020-12-05 07:25] LABS: SGOT/AST 26 U/L (15-37); SGPT/ALT 84 U/L (13-61)
[2020-12-05 07:26] LABS: CREATININE 0.7 mg/dL (0.55-1.3)
[2020-12-05 07:27] LABS: ALK PHOS 65 U/L (45-117); BILIRUBIN,TOTAL 0.7 mg/dL (0.2-1); TOT PROT 5.6 g/dl (6.4-8.2)
[2020-12-05] MEDS: ALBUTEROL SO4 HFA INHALER IH SCH ×4 (08:57→22:08)
[2020-12-05] MEDS: CHLORTHALIDONE 25 MG TABLET PO SCH (09:01)
[2020-12-05] MEDS: DEXAMETHASONE SOD PHOSPHATE 4 MG/1 ML VIAL IVPUSH SCH (09:01)
[2020-12-05] MEDS: ENOXAPARIN NA (PORCINE) 80 MG/0.8 ML DISP.SYRIN SQ SCH (09:01)
[2020-12-05] MEDS: amLODIPine BESYLATE 10 MG TABLET (FP) PO SCH (09:02)
[2020-12-05] MEDS: POLYETHYLENE GLYCOL 3350 119 GM BTL PO SCH (09:02)
[2020-12-05] MEDS: LABETALOL HCL 100 MG TABLET (FP) PO SCH ×2 (09:02→22:07)
[2020-12-05] MEDS: LOSARTAN POTASSIUM 50 MG TABLET PO SCH (09:03)
[2020-12-05] MEDS: BUDESONIDE/FORMETEROL FUMARATE 160/4.5 mcg INHALER IH SCH ×2 (09:03→22:51)
[2020-12-05] MEDS: FAMOTIDINE 20 MG TABLET PO SCH (09:03)
[2020-12-05] MEDS ORDERED: INSULIN (NOVOLOG) ASPART 100 UNITS/ML 10ML VIAL SQ ONE (18:15)
[2020-12-05] MEDS ORDERED: CHLORHEXIDINE GLUCONATE 4% CLEANSER FOR DECOLONIZATION TP SCH (22:00)
[2020-12-05] MEDS: ATORVASTATIN CA 20 MG TABLET (FP) PO SCH (22:07)
[2020-12-06] MEDS: INSULIN SLIDING SCALE (NOVOLOG) 1 VIAL SQ SCH ×4 (06:30→21:58)
[2020-12-06] MEDS: INSULIN (LEVEMIR) 100 UNITS/ML UNITS SQ SCH ×2 (06:31→21:58)
[2020-12-06 08:10] LABS: BASO % 0.6 % (0-2.0); EOS % 1.4 % (0-4.5); HEMATOCRIT 43.7 % (32.4-45.2); HEMOGLOBIN 14.5 GM/dL (10.7-15.3); LYMPH % 5.2 % (8-40); MCH 26.4 pg (25.7-33.7); MCHC 33.3 g/dl (32.0-36.0); MEAN CELL VOLUME 79.2 fl (80-96); MEAN PLT VOLUME 9.1 fl (7.5-11.1); MONO % 4.8 % (3.8-10.2); PLATELET COUNT 261 K/MM3 (134-434); RBC 5.52 M/mm3 (3.60-5.2); RDW 14.3 % (11.6-15.6); WHITE BLOOD COUNT 12.3 K/mm3 (4.0-10.0)
[2020-12-06] MEDS: ALBUTEROL SO4 HFA INHALER IH SCH ×4 (08:18→20:59)
[2020-12-06 08:31] LABS: CHLORIDE 104 mmol/L (98-107); SODIUM 141 mmol/L (136-145)
[2020-12-06 08:34] LABS: ALBUMIN 2.9 g/dl (3.4-5.0); ANION GAP 6 MMOL/L (8-16); BLOOD UREA NITROGEN 24.3 mg/dL (7-18); CALCIUM 9.5 mg/dL (8.5-10.1); CO2 31 mmol/L (21-32); GLUCOSE,RANDOM 130 mg/dL (74-106)
[2020-12-06 08:36] LABS: MAGNESIUM 1.8 mg/dL (1.8-2.4)
[2020-12-06 08:37] LABS: SGOT/AST 24 U/L (15-37); SGPT/ALT 65 U/L (13-61)
[2020-12-06 08:38] LABS: CREATININE 0.7 mg/dL (0.55-1.3)
[2020-12-06 08:39] LABS: BILIRUBIN,TOTAL 0.9 mg/dL (0.2-1); TOT PROT 5.6 g/dl (6.4-8.2)
[2020-12-06 08:40] LABS: ALK PHOS 69 U/L (45-117)
[2020-12-06] MEDS: FAMOTIDINE 20 MG TABLET PO SCH (10:03)
[2020-12-06] MEDS: BUDESONIDE/FORMETEROL FUMARATE 160/4.5 mcg INHALER IH SCH ×2 (10:04→22:02)
[2020-12-06] MEDS: amLODIPine BESYLATE 10 MG TABLET (FP) PO SCH (10:04)
[2020-12-06] MEDS: LABETALOL HCL 100 MG TABLET (FP) PO SCH ×2 (10:04→21:58)
[2020-12-06] MEDS: LOSARTAN POTASSIUM 50 MG TABLET PO SCH (10:05)
[2020-12-06] MEDS: DEXAMETHASONE SOD PHOSPHATE 4 MG/1 ML VIAL IVPUSH SCH (10:05)
[2020-12-06] MEDS: CHLORTHALIDONE 25 MG TABLET PO SCH (10:06)
[2020-12-06] MEDS: POLYETHYLENE GLYCOL 3350 119 GM BTL PO SCH (10:07)
[2020-12-06] MEDS: ENOXAPARIN NA (PORCINE) 80 MG/0.8 ML DISP.SYRIN SQ SCH (10:07)
[2020-12-06] MEDS: ATORVASTATIN CA 20 MG TABLET (FP) PO SCH (21:58)
[2020-12-07] MEDS: INSULIN (LEVEMIR) 100 UNITS/ML UNITS SQ SCH ×2 (07:08→21:44)
[2020-12-07] MEDS: INSULIN SLIDING SCALE (NOVOLOG) 1 VIAL SQ SCH ×4 (07:21→21:44)
[2020-12-07 08:30] LABS: BASO % 0.5 % (0-2.0); EOS % 1.6 % (0-4.5); HEMATOCRIT 43.3 % (32.4-45.2); HEMOGLOBIN 14.4 GM/dL (10.7-15.3); LYMPH % 7.3 % (8-40); MCH 26.2 pg (25.7-33.7); MCHC 33.2 g/dl (32.0-36.0); MEAN CELL VOLUME 78.9 fl (80-96); MEAN PLT VOLUME 8.8 fl (7.5-11.1); MONO % 5.3 % (3.8-10.2); NEUT % 85.3 % (42.8-82.8); PLATELET COUNT 223 K/MM3 (134-434); RBC 5.49 M/mm3 (3.60-5.2); RDW 14.3 % (11.6-15.6); WHITE BLOOD COUNT 12.6 K/mm3 (4.0-10.0)
[2020-12-07 08:37] LABS: CHLORIDE 104 mmol/L (98-107); SODIUM 141 mmol/L (136-145)
[2020-12-07 08:44] LABS: SGOT/AST 27 U/L (15-37); SGPT/ALT 51 U/L (13-61)
[2020-12-07 08:45] LABS: BLOOD UREA NITROGEN 22.5 mg/dL (7-18)
[2020-12-07 08:47] LABS: ALBUMIN 2.9 g/dl (3.4-5.0); ALK PHOS 79 U/L (45-117); ANION GAP 5 MMOL/L (8-16); CO2 32 mmol/L (21-32); GLUCOSE,RANDOM 86 mg/dL (74-106)
[2020-12-07 08:48] LABS: BILIRUBIN,TOTAL 0.9 mg/dL (0.2-1); CREATININE 0.6 mg/dL (0.55-1.3); TOT PROT 5.7 g/dl (6.4-8.2)
[2020-12-07] MEDS ORDERED: POTASSIUM CHLORIDE TABS 20 MEQ TABLET.ER (FP) PO ONE (09:00)
[2020-12-07] MEDS: ALBUTEROL SO4 HFA INHALER IH SCH ×4 (10:20→20:45)
[2020-12-07] MEDS: amLODIPine BESYLATE 10 MG TABLET (FP) PO SCH (10:21)
[2020-12-07] MEDS: ENOXAPARIN NA (PORCINE) 80 MG/0.8 ML DISP.SYRIN SQ SCH (10:21)
[2020-12-07] MEDS: LOSARTAN POTASSIUM 50 MG TABLET PO SCH (10:21)
[2020-12-07] MEDS: LABETALOL HCL 100 MG TABLET (FP) PO SCH ×2 (10:21→21:42)
[2020-12-07] MEDS: CHLORTHALIDONE 25 MG TABLET PO SCH (10:21)
[2020-12-07] MEDS: DEXAMETHASONE SOD PHOSPHATE 4 MG/1 ML VIAL IVPUSH SCH (10:22)
[2020-12-07] MEDS: FAMOTIDINE 20 MG TABLET PO SCH (10:22)
[2020-12-07] MEDS: POLYETHYLENE GLYCOL 3350 119 GM BTL PO SCH (10:22)
[2020-12-07] MEDS: BUDESONIDE/FORMETEROL FUMARATE 160/4.5 mcg INHALER IH SCH ×2 (10:23→21:41)
[2020-12-07] MEDS: ATORVASTATIN CA 20 MG TABLET (FP) PO SCH (21:42)
[2020-12-07] MEDS: NYSTATIN 100000 UNIT/GM TOPICAL OINTMENT 15 GM TUBE TP SCH (23:04)
[2020-12-08] MEDS: INSULIN (LEVEMIR) 100 UNITS/ML UNITS SQ SCH ×2 (06:53→21:59)
[2020-12-08] MEDS: INSULIN SLIDING SCALE (NOVOLOG) 1 VIAL SQ SCH ×4 (07:41→22:00)
[2020-12-08 09:34] LABS: BASO % 0.3 % (0-2.0); EOS % 1.5 % (0-4.5); HEMATOCRIT 43.2 % (32.4-45.2); HEMOGLOBIN 14.2 GM/dL (10.7-15.3); LYMPH % 6.3 % (8-40); MCH 26.2 pg (25.7-33.7); MCHC 32.9 g/dl (32.0-36.0); MEAN CELL VOLUME 79.6 fl (80-96); MEAN PLT VOLUME 9.2 fl (7.5-11.1); MONO % 4.7 % (3.8-10.2); NEUT % 87.2 % (42.8-82.8); PLATELET COUNT 186 K/MM3 (134-434); RBC 5.42 M/mm3 (3.60-5.2); RDW 14.3 % (11.6-15.6); WHITE BLOOD COUNT 14.8 K/mm3 (4.0-10.0)
[2020-12-08 09:48] LABS: CHLORIDE 105 mmol/L (98-107); SODIUM 142 mmol/L (136-145)
[2020-12-08 10:11] LABS: ALBUMIN 3.1 g/dl (3.4-5.0); ALK PHOS 86 U/L (45-117); ANION GAP 6 MMOL/L (8-16); BILIRUBIN,TOTAL 1.1 mg/dL (0.2-1); BLOOD UREA NITROGEN 21.8 mg/dL (7-18); CALCIUM 9.6 mg/dL (8.5-10.1); CO2 31 mmol/L (21-32); GLUCOSE,RANDOM 130 mg/dL (74-106); MAGNESIUM 1.8 mg/dL (1.8-2.4); SGOT/AST 29 U/L (15-37); TOT PROT 5.9 g/dl (6.4-8.2)
[2020-12-08 10:14] LABS: CREATININE 0.6 mg/dL (0.55-1.3)
[2020-12-08 10:15] LABS: SGPT/ALT 43 U/L (13-61)
[2020-12-08] MEDS: amLODIPine BESYLATE 10 MG TABLET (FP) PO SCH (10:23)
[2020-12-08] MEDS: DEXAMETHASONE SOD PHOSPHATE 4 MG/1 ML VIAL IVPUSH SCH (10:24)
[2020-12-08] MEDS: LABETALOL HCL 100 MG TABLET (FP) PO SCH ×2 (10:24→22:00)
[2020-12-08] MEDS: ALBUTEROL SO4 HFA INHALER IH SCH ×4 (10:24→20:59)
[2020-12-08] MEDS: LOSARTAN POTASSIUM 50 MG TABLET PO SCH (10:24)
[2020-12-08] MEDS: ENOXAPARIN NA (PORCINE) 40 MG/0.4 ML DISP.SYRIN SQ SCH (10:25)
[2020-12-08] MEDS: POLYETHYLENE GLYCOL 3350 119 GM BTL PO SCH (10:25)
[2020-12-08] MEDS: CHLORTHALIDONE 25 MG TABLET PO SCH (10:25)
[2020-12-08] MEDS: FAMOTIDINE 20 MG TABLET PO SCH (10:26)
[2020-12-08] MEDS: BUDESONIDE/FORMETEROL FUMARATE 160/4.5 mcg INHALER IH SCH ×2 (10:26→22:01)
[2020-12-08] MEDS: NYSTATIN 100000 UNIT/GM TOPICAL OINTMENT 15 GM TUBE TP SCH (10:26)
[2020-12-08] MEDS ORDERED: PT OWN MED DRAWER 7, Y5N ONE (12:56)
[2020-12-08] MEDS: NYSTATIN POWDER 100,000 UNITS/GM - 15 GM TOPICAL POWDER TP SCH ×2 (13:06→22:01)
[2020-12-08] MEDS: ATORVASTATIN CA 20 MG TABLET (FP) PO SCH (22:00)
[2020-12-09] MEDS: INSULIN (LEVEMIR) 100 UNITS/ML UNITS SQ SCH ×2 (06:32→22:12)
[2020-12-09] MEDS: INSULIN SLIDING SCALE (NOVOLOG) 1 VIAL SQ SCH ×4 (06:33→22:23)
[2020-12-09 07:58] LABS: BASO % 0.2 % (0-2.0); EOS % 1.4 % (0-4.5); HEMATOCRIT 42.9 % (32.4-45.2); LYMPH % 4.6 % (8-40); MCHC 32.7 g/dl (32.0-36.0); MEAN CELL VOLUME 79.3 fl (80-96); MEAN PLT VOLUME 8.8 fl (7.5-11.1); MONO % 4.4 % (3.8-10.2); NEUT % 89.4 % (42.8-82.8); PLATELET COUNT 171 K/MM3 (134-434); RBC 5.41 M/mm3 (3.60-5.2); RDW 14.3 % (11.6-15.6); WHITE BLOOD COUNT 17.6 K/mm3 (4.0-10.0)
[2020-12-09 08:30] LABS: BLOOD UREA NITROGEN 18.6 mg/dL (7-18); CALCIUM 9.6 mg/dL (8.5-10.1); MAGNESIUM 1.8 mg/dL (1.8-2.4)
[2020-12-09 08:33] LABS: CREATININE 0.5 mg/dL (0.55-1.3)
[2020-12-09 08:35] LABS: TOT PROT 5.8 g/dl (6.4-8.2)
[2020-12-09] MEDS: ALBUTEROL SO4 HFA INHALER IH SCH ×4 (08:35→22:12)
[2020-12-09] MEDS: POLYETHYLENE GLYCOL 3350 119 GM BTL PO SCH (09:02)
[2020-12-09] MEDS: DEXAMETHASONE SOD PHOSPHATE 4 MG/1 ML VIAL IVPUSH SCH (09:02)
[2020-12-09] MEDS: LOSARTAN POTASSIUM 50 MG TABLET PO SCH (09:02)
[2020-12-09] MEDS: ENOXAPARIN NA (PORCINE) 40 MG/0.4 ML DISP.SYRIN SQ SCH (09:02)
[2020-12-09] MEDS: CHLORTHALIDONE 25 MG TABLET PO SCH (09:02)
[2020-12-09] MEDS: NYSTATIN POWDER 100,000 UNITS/GM - 15 GM TOPICAL POWDER TP SCH ×2 (09:03→22:12)
[2020-12-09] MEDS: LABETALOL HCL 100 MG TABLET (FP) PO SCH ×2 (09:03→22:12)
[2020-12-09] MEDS: BUDESONIDE/FORMETEROL FUMARATE 160/4.5 mcg INHALER IH SCH ×2 (09:03→22:23)
[2020-12-09] MEDS: FAMOTIDINE 20 MG TABLET PO SCH (09:03)
[2020-12-09] MEDS: amLODIPine BESYLATE 10 MG TABLET (FP) PO SCH (09:03)
[2020-12-09] MEDS: ATORVASTATIN CA 20 MG TABLET (FP) PO SCH (22:11)
[2020-12-10 01:53] VITALS: BP 150/69; PULSE 83; TEMP 98.1
== END 2020-12-10 03:53 | disposition expired | DRG 177 ==
LOC: JER 05:56 → JERBED 06:59 → JICU 11-26 04:39 → J4S 12-05 03:02
PROVIDERS: ADMIT Internal Medicine; ATTEND Nurse Practitioner Family
PROC: XW033E5 Introduction of Remdesivir Anti-infective into Peripheral Vein, Percutaneous Approach, New Technology Group 5 (ICD-10-PCS; principal; 2020-11-27)
PROC: XW033H5 Introduction of Tocilizumab into Peripheral Vein, Percutaneous Approach, New Technology Group 5 (ICD-10-PCS; 2020-11-27)
PROC: 5A19054 Respiratory Ventilation, Single, Nonmechanical (ICD-10-PCS; 2020-11-27)
PROC: 5A12012 Performance of Cardiac Output, Single, Manual (ICD-10-PCS; 2020-12-10)
DX: U07.1 COVID-19 (principal); J12.82 Pneumonia due to coronavirus disease 2019; J96.01 Acute respiratory failure with hypoxia; M62.82 Rhabdomyolysis; E87.1 Hypo-osmolality and hyponatremia; E87.0 Hyperosmolality and hypernatremia; I24.8 Other forms of acute ischemic heart disease; E66.9 Obesity, unspecified; E11.9 Type 2 diabetes mellitus without complications; I10 Essential (primary) hypertension; E78.5 Hyperlipidemia, unspecified; Z68.31 Body mass index [BMI] 31.0-31.9, adult; R74.01 Elevation of levels of liver transaminase levels
CPT/HCPCS: 36415; 36600; 71045-TC-FY; 80048; 80053; 80074; 81003; 82248; 82550; 82553; 82728; 82803; 82962; 83605; 83615; 83735; 83880; 84100; 84484; 85025; 85027; 85379; 85610; 85651; 85730; 86140; 86480; 86704; 86706; 86707; 86708; 86709; 86769; 86850; 86900; 86901; 87040; 87070; 87077; 87086; 87186; 87205; 87340; 87522; 87804; 87899; 93005; 93010; 94010; 94660; 97116-GP; 97162-GP; 99285-25; C9399; C9803; J0131; J3262; U0003; U0005